=== PATIENT | female | born 1940 | race Caucasian/White ===

== ENCOUNTER 2016-11-11 17:33 | Emergency (ER) | payer OTHER ==
[~2016-11-11] VITALS: Ht 154.9 cm; Wt 67.0 kg
[~2016-11-11 17:33] MED LIST: AMLO-147 PO; FOR CHOLESTEROL
[2016-11-11 17:41] VITALS: Ht 154.9 cm; Wt 67.0 kg
[2016-11-11] MEDS ORDERED: IBUP400T22 PO (18:41)
--- NOTE | 2016-11-11 19:27 | RADRPT ---
PROCEDURE: XR Knee. CLINICAL INDICATION: Left knee pain. TECHNIQUE: AP, lateral and oblique views of the left knee were obtained. The images reviewed on a PACS workstation. COMPARISON: None. FINDINGS: Osteophytosis is seen in all 3 compartments. No acute fracture or dislocation is seen. Mild joint s pace narrowing in the lateral compartment seen with severe joint space narrowing in the patellofemor al compartment. A moderate size suprapatellar joint effusion is seen. No soft tissue swelling is pre sent. IMPRESSION: 1. 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 2. Moderate size suprapatellar joint effusion. RPTAT: HPNM Physician Alyssa Date Time Electronically viewed and signed by Gil Matthews Physician on 11/11/2016 19:27 /
--- NOTE | 2016-11-11 20:34 | ERD ---
ER Documentation Chief Complaint Date/Time DATE: 11/11/16 TIME: 20:27 Chief Complaint left knee pain after stretching/ missed step HPI This is a 76-year-old female presenting to the emergency department complaining of left knee pain status post contusion that occurred 1 week prior to being seen. Patient was walking and she missed a step. Patient states the pain is 8 out of 10 and it has worsened over the past week. Patient states that she was able to walk now she has difficulty ambulating. Patient has not tried any medications for this ROS All systems reviewed and are negative except as per history of present illness. Medications Home Meds Active Scripts Ibuprofen* (Ibuprofen*) 400 Mg Tablet, 400 MG PO Q6H Y for PAIN, #30 TAB Prov:OBDULIO BUCKNER PA-C 11/11/16 Reported Medications [For Cholesterol] No Conflict Check, DAILY 04/23/14 Amlodipine Besylate* (Amlodipine Besylate*) 10 Mg Tablet, 10 MG PO DAILY, TAB 04/23/14 Allergies Allergies: Coded Allergies: No Known Allergy (Unverified , 04/23/14) PMhx/Soc History of Surgery: Yes Anesthesia Reaction: No Hx Neurological Disorder: No Hx Respiratory Disorders: No Hx Cardiac Disorders: Yes (HTN ) Hx Psychiatric Problems: No Hx Miscellaneous Medical Probl: Yes (OSTEOPOROSIS) Hx Alcohol Use: No Hx Substance Use: No Hx Tobacco Use: No Smoking Status: Never smoker Physical Exam Vitals Vital Signs Date Time Temp Pulse Resp B/P Pulse Ox O2 Delivery O2 Flow Rate FiO2 11/11/16 17:41 98.1 62 18 160/77 99 Physical Exam General: WD/WN, in no apparent distress, non-toxic appearing HENT: NC/AT Eyes: Conjunctiva normal Neck: Supple Pulm: Clear to auscultation, normal labored breathing; no wheezing/rales/ rhonchi heard CV: Good capillary refill GI: Non-distended, no guarding Back: No masses Ext: Tenderness palpation to the left knee, moderate swelling, +2 popliteal pulses Neuro: Moves on all fours Skin: intact Psych: Normal mood Procedures/MDM This is a 76-year-old female presenting to the emergency department complaining of left knee pain status post contusion and ground-level fall that occurred about a week ago. I doubt the patient has any fracture dislocation. This may be a ligamentous, tendon versus other and will need to have her follow-up with orthopedist. X-ray shows severe DJD with a moderate effusion, there was no evidence of fracture dislocation. Patient was placed in a knee immobilizer. I have discussed with her and her daughter to follow-up with an orthopedist tomorrow for further evaluation management and possible MRI. Patient was given prescription for ibuprofen. Patient is neurovascular intact to be discharged home with strict precautions. She understands and agrees with this plan Departure Diagnosis: Primary Impression: Knee pain Additional Impression: Knee injury Condition: Stable Patient Instructions: Contusion, Lower Extremity, Knee Pain, Uncertain Cause Referrals: SASKIA MEDINA (PCP) Additional Instructions: Visite a karly pineda para un EXAMEN.Regrese a estas instalaciones si no se mejora kevan esperbamos o kevan le dijimos. [place] toda la medicina franchesca y kevan se le indic. Regrese a estas instalaciones si no se mejora kevan esperbamos o kevan le dijimos. OBDULIO BUCKNER PA-C Nov 11, 2016 20:34
== END 2016-11-11 19:49 | disposition home or self-care (01) ==
LOC: FTE 17:33
DX: S89.92XA Unspecified injury of left lower leg, initial encounter (principal); I10 Essential (primary) hypertension; X50.1XXA Overexertion from prolonged static or awkward postures, initial encounter; Y92.9 Unspecified place or not applicable
CPT/HCPCS: 29505; 73562; Z7502

== ENCOUNTER → 2017-01-20 | Outpatient (CLI) | payer OTHER ==
[~2017-01-20] MED LIST changes: +IBUP400T22 PO
--- NOTE | 2017-03-01 08:05 | HKNOTE ---
DATE OF SERVICE: 01/20/2017 REFERRED BY: Aryan Guzman MD. MAIN COMPLAINT: Pain in the left knee. HISTORY OF MAIN COMPLAINT: The patient is a 76-year-old male who complains of pain in his left knee which has been present since he took a fall landing on the knee 3 months ago. He was referred to Dr. Graham Bishop who diagnosed arthritis of the knee and referred him to me for fu rther evaluation and treatment. PRESENT COMPLAINTS: Currently his pain is mild. There is no radiation of pain up or down the leg. His pain is aggravated by walking and stair climbing. He does get rest pain at night. He takes ib uprofen 400 mg once a day. He did not have any back pain or numbness or tingling in his legs. He c an walk up to 20 minutes at a time without stopping if he goes slowly. He does not use a walking ai d. He limps some of the time. He does not have a shoe lift. He can clip his toenails and tie his shoelaces. PAST ORTHOPEDIC HISTORY: Previous orthopedic operations none. PRIOR CORTISONE INTAKE: None. ALCOHOL INTAKE: None. OTHER JOINT PROBLEMS: None. BLOOD TESTS FOR ARTHRITIS: None. PRIOR INJURIES TO HIPS OR KNEES: None other than above. WORK STATUS: The patient is currently not working. PAST MEDICAL HISTORY: Hypertension. PAST SURGICAL HISTORY: None. DRUG ALLERGIES: NONE. MEDICATIONS: 1. Triamterene 37.5 mg daily. 2. Alendronate 0.7 mg daily. FAMILY HISTORY: Noncontributory. SYSTEMS REVIEW: Hypertension, otherwise entirely negative. HABITS: The patient does not smoke or drink alcoholic beverages. VICE PRESIDENT OF SALES: Dr. Aryan Guzman [facility] [address], [place] [id number]. PHYSICAL EXAMINATION GENERAL: The patient is a fit-looking 76-year-old male. His gait is slightly antalgic. He walks w ithout a walking aid. VITAL SIGNS: Height 5 feet, weight 130 pounds. Blood pressure 186/80, temperature 98.1. HIPS: Both hips have a full range of motion without pain. RIGHT KNEE: The right knee shows normal alignment. Active and passive extension is 0 degrees. Activ e and passive flexion is 135 degrees. The medial and lateral collateral ligaments and cruciate ligam ents are intact. Elise test is negative. There is no effusion, tenderness, scarring, crepitus, or cysts. The patella tracks normally. There is no tenderness on the articular surface of the patella o r in the patellar groove. The Q angle is normal. LEFT KNEE: The left knee shows normal alignment. Active and passive extension is 0 degrees. Flexion is 120 degrees. 2+ tenderness over the medial joint line. 2+ tenderness over the lateral joint li ne. 4+ crepitus over the patella. All ligaments around the knee are intact. Elsie test is negat poli. There is no effusion, tenderness, scarring, crepitus, or cysts. The patella tracks normally. Th ere is no tenderness on the articular surface of the patella or in the patellar groove. The Q angle is normal. IMAGING: Plain x-rays of the left knee obtained today at the [facility] (3 views ) were reviewed. The patellofemoral joint shows severe narrowing with hwca-[id number] contact, subchon dral sclerosis and osteophyte formation. The medial compartment showed moderate narrowing with some secondary changes. The lateral compartment shows severe narrowing with almost wrzt-wx-nizw contact , subchondral sclerosis and intraosseous cyst formation. DIAGNOSES: 1. Degenerative osteoarthritis of the left knee. 2. Hypertension. MANAGEMENT: The patient is advised through his spanish interpreter that he has severe degenerative osteoart hritis of his left knee and that he will need to have knee replacement surgery sometime in the near future. The actual operation was discussed in a reasonable amount of detail, but not in full depth. Some of the possible complications were discussed with him and his . The patient can return for further cortisone injections as needed. Under sterile conditions, given injection of 2 mL of Kenalog and 6 mL of 2% lidocaine into the knee. He has not had a previous trial of anti-inflammatory medications. He will be seen again in about 6 weeks' time for reevaluation (or later if needed). He may return sooner if needed for this first round of injections but thereafter he could have no mo re than 1 injection every 3 years until his knee settles down. He most definitely will need a knee replacement sometime in the near future. Dictated By: PHU CRISOSTOMO/JELANI Conf#: [id number] DID#: [id number] CC: Aryan Guzman;*EndCC*
== END | disposition home or self-care (01) ==
LOC: HKI 14:23
DX: M17.12 Unilateral primary osteoarthritis, left knee (principal); M25.562 Pain in left knee; I10 Essential (primary) hypertension
CPT/HCPCS: 20610; Z7500; Z7610; G0463